=== PATIENT | male | born 1960 | race Caucasian/White ===

== ENCOUNTER 2017-03-27 06:13 | Inpatient (IN) | payer MEDICAID ==
[~2017-03-27] VITALS: Ht 167.6 cm; Wt 69.9 kg
[2017-03-27] VITALS (9 sets, daily range): BP systolic 68–114; BP diastolic 41–65
[2017-03-27 07:04] LABS: BASOPHIL % 0.4 % (0-2); PLATELET COUNT 132 x10^3mcL (130-400)
[2017-03-27 07:05] LABS: RED CELL DISTRIBUTION WIDTH 18.4 % (11.5-14.5)
[2017-03-27] MEDS ORDERED: INSULIN (07:13)
[2017-03-27 07:17] LABS: CARBON DIOXIDE 15.4 mmol/L (21-32); CREATININE SERUM 1.5 mg/dL (0.7-1.3); POTASSIUM SERUM 4.6 mmol/L (3.5-5.1)
[2017-03-27 07:28] LABS: ALBUMIN 2.5 g/dL (3.4-5.0); BILIRUBIN TOTAL 0.51 mg/dL (0.20-1.00); C REACTIVE PROTEIN 8.3 mg/dL (<=0.9); TOTAL PROTEIN, SERUM 6.8 g/dL (6.4-8.2)
[2017-03-27 07:31] LABS: FREE T4 0.91 ng/dL (0.76-1.46); T4(THYROXINE) 5.9 ug/dL (4.7-13.3)
[2017-03-27 07:43] LABS: CK-MB 1.5 ng/mL (0-3.6)
[2017-03-27 08:28] LABS: ERYTHROCYTE SED RATE 51 mm/hr (0-20)
[2017-03-27 08:49] LABS: T3 TOTAL 0.61 ng/mL
[2017-03-27 10:13] LABS: PHOSPHOROUS 4.5 mg/dL (2.5-4.9)
[2017-03-27 10:14] LABS: MAGNESIUM 1.8 mg/dL (1.8-2.4)
[2017-03-27 10:15] LABS: CHOLESTEROL/HDL RATIO 1.3
[2017-03-27 18:30] LABS: CALCIUM 6.8 mg/dL (8.5-10.1); CARBON DIOXIDE 12.2 mmol/L (21-32); CREATININE SERUM 1.7 mg/dL (0.7-1.3); POTASSIUM SERUM 4.4 mmol/L (3.5-5.1)
[2017-03-27 18:34] LABS: UA SPECIFIC GRAVITY 1.025 (1.005-1.035); microscopic required? YES; urine erythrocyte 2+ (NEGATIVE)
[2017-03-27 19:50] LABS: AMPHETAMINE QUAL UR NONE DETECTED (NEG <=1000)
[2017-03-28] VITALS (19 sets, daily range): BP systolic 75–114; BP diastolic 49–66
[2017-03-28 05:16] LABS: CALCIUM 7.1 mg/dL (8.5-10.1); CREATININE SERUM 2.2 mg/dL (0.7-1.3); MAGNESIUM 1.3 mg/dL (1.8-2.4); POTASSIUM SERUM 4.4 mmol/L (3.5-5.1)
[2017-03-28 05:21] LABS: RED BLOOD CELLS 2.67 M/mm3 (4.52-5.90)
[2017-03-28 05:34] LABS: PLATELET COUNT 116 x10^3mcL (130-400); RED CELL DISTRIBUTION WIDTH 18.3 % (11.5-14.5)
[2017-03-28 05:53] LABS: BAND NEUTROPHIL 20 % (0-10); METAMYELOCTE 8 % (0-2); MONOCYTE 4 % (0-7); SEGMENTED NEUTROPHILS 66 % (37-75)
[2017-03-28 05:55] LABS: rbc morphology (normal/abnorm) ABNORMAL (NORMAL)
[2017-03-28 05:56] LABS: ovalocyte/elliptocyte 1+; tear drop cell (dacryocyte) 1+
[2017-03-28 07:35] LABS: IRON 13 ug/dL (65-170); TOTAL IRON BINDING CAPACITY 199 ug/dL (250-450)
[2017-03-29] VITALS (19 sets, daily range): BP systolic 72–123; BP diastolic 47–83
[2017-03-29 05:11] LABS: CARBON DIOXIDE 13.9 mmol/L (21-32); CREATININE SERUM 2.9 mg/dL (0.7-1.3); MAGNESIUM 2.3 mg/dL (1.8-2.4); PHOSPHOROUS 5.7 mg/dL (2.5-4.9); POTASSIUM SERUM 4.8 mmol/L (3.5-5.1)
[2017-03-29 05:14] LABS: PLATELET COUNT 87 x10^3mcL (130-400); RED CELL DISTRIBUTION WIDTH 19.1 % (11.5-14.5)
[2017-03-29 05:38] LABS: BAND NEUTROPHIL 28 % (0-10); METAMYELOCTE 15 % (0-2); MONOCYTE 1 % (0-7); MYELOCYTE 1 % (0-2); SEGMENTED NEUTROPHILS 54 % (37-75)
[2017-03-29 05:40] LABS: ovalocyte/elliptocyte 1+; rbc morphology (normal/abnorm) ABNORMAL (NORMAL); tear drop cell (dacryocyte) 1+
[2017-03-29 05:42] LABS: PLATELET MORPHOLOGY LARGE PLATELET SEEN
[2017-03-30] VITALS (18 sets, daily range): BP systolic 83–133; BP diastolic 54–83
[2017-03-30 06:02] LABS: PLATELET COUNT 47 x10^3mcL (130-400)
[2017-03-30 06:05] LABS: CALCIUM 7.2 mg/dL (8.5-10.1); CARBON DIOXIDE 18.4 mmol/L (21-32); CREATININE SERUM 3.5 mg/dL (0.7-1.3); MAGNESIUM 2.3 mg/dL (1.8-2.4); PHOSPHOROUS 6.5 mg/dL (2.5-4.9); POTASSIUM SERUM 3.7 mmol/L (3.5-5.1)
[2017-03-30 06:16] LABS: BAND NEUTROPHIL 25 % (0-10); METAMYELOCTE 12 % (0-2); MONOCYTE 3 % (0-7); MYELOCYTE 2 % (0-2); SEGMENTED NEUTROPHILS 56 % (37-75); ovalocyte/elliptocyte 1+; rbc morphology (normal/abnorm) ABNORMAL (NORMAL); tear drop cell (dacryocyte) 1+
[2017-03-31] VITALS (17 sets, daily range): BP systolic 97–155; BP diastolic 65–96
[2017-03-31 06:10] LABS: BASOPHIL % 0 % (0-2)
[2017-03-31 06:12] LABS: PLATELET COUNT 44 x10^3mcL (130-400)
[2017-03-31 06:14] LABS: CALCIUM 6.9 mg/dL (8.5-10.1); CARBON DIOXIDE 31.4 mmol/L (21-32); CREATININE SERUM 2.4 mg/dL (0.7-1.3); PHOSPHOROUS 4.6 mg/dL (2.5-4.9); POTASSIUM SERUM 3.2 mmol/L (3.5-5.1)
[2017-04-01] VITALS (18 sets, daily range): BP systolic 95–159; BP diastolic 42–99
[2017-04-01 05:25] LABS: BASOPHIL % 0 % (0-2); PLATELET COUNT 38 x10^3mcL (130-400); RED CELL DISTRIBUTION WIDTH 20.6 % (11.5-14.5)
[2017-04-01 05:33] LABS: CALCIUM 7.4 mg/dL (8.5-10.1); CARBON DIOXIDE 28.1 mmol/L (21-32); CREATININE SERUM 2.3 mg/dL (0.7-1.3); MAGNESIUM 2.1 mg/dL (1.8-2.4); PHOSPHOROUS 3.1 mg/dL (2.5-4.9); POTASSIUM SERUM 3.2 mmol/L (3.5-5.1)
[2017-04-02] VITALS (17 sets, daily range): BP systolic 121–162; BP diastolic 75–96
[2017-04-02 05:03] LABS: PLATELET COUNT 40 x10^3mcL (130-400); RED CELL DISTRIBUTION WIDTH 20.1 % (11.5-14.5)
[2017-04-02 05:09] LABS: CALCIUM 7.4 mg/dL (8.5-10.1); CARBON DIOXIDE 25.3 mmol/L (21-32); MAGNESIUM 2.2 mg/dL (1.8-2.4); PHOSPHOROUS 3.5 mg/dL (2.5-4.9); POTASSIUM SERUM 3.4 mmol/L (3.5-5.1)
[2017-04-02 05:51] LABS: BAND NEUTROPHIL 6 % (0-10); METAMYELOCTE 2 % (0-2); MONOCYTE 3 % (0-7); SEGMENTED NEUTROPHILS 85 % (37-75); rbc morphology (normal/abnorm) ABNORMAL (NORMAL)
[2017-04-02 05:52] LABS: ovalocyte/elliptocyte 1+
[2017-04-03] VITALS (15 sets, daily range): BP systolic 98–153; BP diastolic 65–94
[2017-04-03 04:50] LABS: BASOPHIL % 1.5 % (0-2)
[2017-04-03 04:55] LABS: RED CELL DISTRIBUTION WIDTH 19.6 % (11.5-14.5)
[2017-04-03 04:56] LABS: PLATELET COUNT 36 x10^3mcL (130-400)
[2017-04-03 05:05] LABS: CALCIUM 7.7 mg/dL (8.5-10.1); CARBON DIOXIDE 28.9 mmol/L (21-32); CREATININE SERUM 2.5 mg/dL (0.7-1.3); PHOSPHOROUS 3.9 mg/dL (2.5-4.9); POTASSIUM SERUM 4.2 mmol/L (3.5-5.1)
[2017-04-04] VITALS (20 sets, daily range): BP systolic 92–165; BP diastolic 59–107
[2017-04-04 08:53] LABS: CALCIUM 7.5 mg/dL (8.5-10.1); CARBON DIOXIDE 28.6 mmol/L (21-32); CREATININE SERUM 3.4 mg/dL (0.7-1.3)
[2017-04-04 11:41] LABS: BASOPHIL % 0 % (0-2); BILIRUBIN TOTAL 0.7 mg/dL (0.20-1.00); CALCIUM 7.8 mg/dL (8.5-10.1); CARBON DIOXIDE 25.8 mmol/L (21-32); CREATININE SERUM 3.5 mg/dL (0.7-1.3); RED CELL DISTRIBUTION WIDTH 20.3 % (11.5-14.5)
[2017-04-04 11:46] LABS: ALBUMIN 1.4 g/dL (3.4-5.0)
[2017-04-04 12:06] LABS: PLATELET COUNT 32 x10^3mcL (130-400)
[2017-04-05] VITALS (14 sets, daily range): BP systolic 110–142; BP diastolic 66–83
[2017-04-05 05:33] LABS: BASOPHIL % 0 % (0-2); RED CELL DISTRIBUTION WIDTH 20.2 % (11.5-14.5)
[2017-04-05 05:34] LABS: PLATELET COUNT 41 x10^3mcL (130-400)
[2017-04-05 05:36] LABS: CALCIUM 7.6 mg/dL (8.5-10.1); CARBON DIOXIDE 28.4 mmol/L (21-32); CREATININE SERUM 2.6 mg/dL (0.7-1.3); PHOSPHOROUS 4.5 mg/dL (2.5-4.9); POTASSIUM SERUM 4.2 mmol/L (3.5-5.1)
[2017-04-06] VITALS (7 sets, daily range): BP systolic 114–143; BP diastolic 65–75
[2017-04-06 05:42] LABS: BASOPHIL % 0 % (0-2); PLATELET COUNT 52 x10^3mcL (130-400); RED CELL DISTRIBUTION WIDTH 19.9 % (11.5-14.5)
[2017-04-06 05:47] LABS: CALCIUM 7.9 mg/dL (8.5-10.1); CARBON DIOXIDE 26.4 mmol/L (21-32); CREATININE SERUM 3.3 mg/dL (0.7-1.3); MAGNESIUM 1.9 mg/dL (1.8-2.4); PHOSPHOROUS 4.5 mg/dL (2.5-4.9); POTASSIUM SERUM 3.8 mmol/L (3.5-5.1)
[2017-04-07 05:23] VITALS: BP 128/60
[2017-04-07 06:28] LABS: CALCIUM 7.6 mg/dL (8.5-10.1); CARBON DIOXIDE 28.7 mmol/L (21-32); CREATININE SERUM 2.6 mg/dL (0.7-1.3); PHOSPHOROUS 4.7 mg/dL (2.5-4.9); POTASSIUM SERUM 3.3 mmol/L (3.5-5.1)
[2017-04-07 06:43] LABS: BASOPHIL % 0 % (0-2); PLATELET COUNT 70 x10^3mcL (130-400); RED CELL DISTRIBUTION WIDTH 19.6 % (11.5-14.5)
[2017-04-07 08:15] VITALS: BP 140/93
[2017-04-07 10:22] VITALS: BP 140/93
[2017-04-07 12:20] VITALS: BP 108/62
[2017-04-07 15:09] VITALS: BP 134/69
[2017-04-07 17:32] VITALS: BP 125/73
[2017-04-08 05:43] VITALS: BP 118/54
[2017-04-08 07:01] LABS: CALCIUM 7.5 mg/dL (8.5-10.1); CARBON DIOXIDE 26.5 mmol/L (21-32); CREATININE SERUM 3.4 mg/dL (0.7-1.3); MAGNESIUM 1.6 mg/dL (1.8-2.4); PHOSPHOROUS 4.8 mg/dL (2.5-4.9); POTASSIUM SERUM 4.4 mmol/L (3.5-5.1)
[2017-04-08 07:45] LABS: BASOPHIL % 0 % (0-2); PLATELET COUNT 78 x10^3mcL (130-400); RED CELL DISTRIBUTION WIDTH 19.9 % (11.5-14.5)
[2017-04-08 09:24] VITALS: BP 146/74
[2017-04-08 13:46] VITALS: BP 128/72
[2017-04-08 21:50] VITALS: BP 131/65
[2017-04-09 05:48] VITALS: BP 119/62
[2017-04-09 06:48] LABS: CALCIUM 7.6 mg/dL (8.5-10.1); CARBON DIOXIDE 27.3 mmol/L (21-32); CREATININE SERUM 2.5 mg/dL (0.7-1.3); PHOSPHOROUS 4.5 mg/dL (2.5-4.9); POTASSIUM SERUM 3.9 mmol/L (3.5-5.1)
[2017-04-09 07:42] LABS: BASOPHIL % 0 % (0-2); PLATELET COUNT 81 x10^3mcL (130-400); RED CELL DISTRIBUTION WIDTH 20.4 % (11.5-14.5)
[2017-04-09 09:25] VITALS: BP 123/69
[2017-04-09 15:15] VITALS: BP 115/67
[2017-04-09 18:45] VITALS: BP 129/72
[2017-04-09 21:24] VITALS: BP 121/66
[2017-04-10 06:07] VITALS: BP 119/62
[2017-04-10 06:15] LABS: CALCIUM 7.5 mg/dL (8.5-10.1); CARBON DIOXIDE 25.9 mmol/L (21-32); CREATININE SERUM 3.2 mg/dL (0.7-1.3); PHOSPHOROUS 5.4 mg/dL (2.5-4.9)
[2017-04-10 07:01] LABS: BASOPHIL % 0 % (0-2); PLATELET COUNT 87 x10^3mcL (130-400); RED CELL DISTRIBUTION WIDTH 19.7 % (11.5-14.5)
[2017-04-10 09:35] VITALS: BP 101/46
[2017-04-10 12:59] VITALS: BP 110/58
[2017-04-10 17:04] VITALS: BP 123/62
[2017-04-10 21:58] VITALS: BP 150/76
[2017-04-11 04:24] VITALS: Ht 167.6 cm; Wt 69.9 kg
[2017-04-11 06:09] VITALS: BP 143/75
[2017-04-11 07:09] LABS: CALCIUM 7.4 mg/dL (8.5-10.1); CARBON DIOXIDE 29.8 mmol/L (21-32); CREATININE SERUM 2.3 mg/dL (0.7-1.3); PHOSPHOROUS 4.2 mg/dL (2.5-4.9)
[2017-04-11 08:14] LABS: PLATELET COUNT 91 x10^3mcL (130-400); RED CELL DISTRIBUTION WIDTH 20.1 % (11.5-14.5)
[2017-04-11 08:46] VITALS: BP 129/69
[2017-04-11 09:54] LABS: ATYPICAL LYMPH 1 %; BAND NEUTROPHIL 4 % (0-10); METAMYELOCTE 3 % (0-2); MONOCYTE 8 % (0-7); SEGMENTED NEUTROPHILS 79 % (37-75)
[2017-04-11 09:55] LABS: rbc morphology (normal/abnorm) ABNORMAL (NORMAL)
[2017-04-11 13:40] VITALS: BP 142/71
[2017-04-11 17:27] VITALS: BP 136/69
[2017-04-11 21:49] VITALS: BP 142/83
[2017-04-12 04:50] VITALS: BP 116/56
[2017-04-12 07:35] LABS: CALCIUM 7.5 mg/dL (8.5-10.1); CREATININE SERUM 3.1 mg/dL (0.7-1.3); MAGNESIUM 1.6 mg/dL (1.8-2.4); PHOSPHOROUS 5.1 mg/dL (2.5-4.9); POTASSIUM SERUM 4.4 mmol/L (3.5-5.1)
[2017-04-12 07:54] LABS: BASOPHIL % 0 % (0-2); PLATELET COUNT 87 x10^3mcL (130-400); RED CELL DISTRIBUTION WIDTH 19.8 % (11.5-14.5)
[2017-04-12 10:23] VITALS: BP 140/8
[2017-04-12 14:18] VITALS: BP 138/70
[2017-04-12 17:39] VITALS: BP 138/74
[2017-04-12 21:40] VITALS: BP 143/83
[2017-04-13 05:41] VITALS: BP 117/56
[2017-04-13 06:30] LABS: CALCIUM 7.5 mg/dL (8.5-10.1); CARBON DIOXIDE 24.9 mmol/L (21-32); CREATININE SERUM 3.8 mg/dL (0.7-1.3); MAGNESIUM 1.7 mg/dL (1.8-2.4); PHOSPHOROUS 5.9 mg/dL (2.5-4.9); POTASSIUM SERUM 4.7 mmol/L (3.5-5.1)
[2017-04-13 06:57] LABS: PLATELET COUNT 83 x10^3mcL (130-400); RED CELL DISTRIBUTION WIDTH 19.5 % (11.5-14.5)
[2017-04-13 08:52] VITALS: BP 129/76
[2017-04-13 11:30] LABS: ATYPICAL LYMPH 1 %; BAND NEUTROPHIL 3 % (0-10); BASOPHIL 0 % (0-2); MONOCYTE 8 % (0-7); SEGMENTED NEUTROPHILS 80 % (37-75)
[2017-04-13 11:31] LABS: PLATELET MORPHOLOGY PLATELETS DECREASED; rbc morphology (normal/abnorm) ABNORMAL (NORMAL)
[2017-04-13 11:32] LABS: ovalocyte/elliptocyte 1+; schistocyte (helmet cell) 1+
[2017-04-13 11:33] LABS: burr cell (echinocyte) 1+
[2017-04-13 13:57] VITALS: BP 114/63
[2017-04-13 16:59] VITALS: BP 110/65
[2017-04-13 21:33] VITALS: BP 127/69
[2017-04-13 23:49] LABS: SOURCE FLUID THORACENTESIS
[2017-04-14 05:27] VITALS: BP 113/60
[2017-04-14 07:15] LABS: CALCIUM 7.3 mg/dL (8.5-10.1); CARBON DIOXIDE 26.8 mmol/L (21-32); CREATININE SERUM 2.5 mg/dL (0.7-1.3); MAGNESIUM 1.7 mg/dL (1.8-2.4); PHOSPHOROUS 4.4 mg/dL (2.5-4.9); POTASSIUM SERUM 3.9 mmol/L (3.5-5.1)
[2017-04-14 07:27] LABS: PLATELET COUNT 72 x10^3mcL (130-400); RED CELL DISTRIBUTION WIDTH 19.4 % (11.5-14.5)
[2017-04-14 09:41] VITALS: BP 119/68
[2017-04-14 11:34] LABS: BAND NEUTROPHIL 3 % (0-10); BASOPHIL 0 % (0-2); MONOCYTE 1 % (0-7); SEGMENTED NEUTROPHILS 95 % (37-75); rbc morphology (normal/abnorm) ABNORMAL (NORMAL)
[2017-04-14 11:35] LABS: PLATELET MORPHOLOGY PLATELETS DECREASED; ovalocyte/elliptocyte 2+
[2017-04-14 13:39] VITALS: BP 112/69
[2017-04-14 16:55] VITALS: BP 121/61
[2017-04-14 20:42] VITALS: BP 124/62
[2017-04-14 22:40] VITALS: BP 98/57
[2017-04-15 05:43] VITALS: BP 112/55
[2017-04-15 06:55] LABS: CALCIUM 7.4 mg/dL (8.5-10.1); CARBON DIOXIDE 24.4 mmol/L (21-32); CREATININE SERUM 3.4 mg/dL (0.7-1.3); PHOSPHOROUS 5.5 mg/dL (2.5-4.9); POTASSIUM SERUM 4.6 mmol/L (3.5-5.1)
[2017-04-15 09:59] VITALS: BP 108/68
[2017-04-15 14:48] VITALS: BP 126/62
[2017-04-15] MEDS ORDERED: NOR5 PO (15:17)
[2017-04-15] MEDS ORDERED: FER300 PO (15:17)
[2017-04-15] MEDS ORDERED: BG FS (15:17)
[2017-04-15] MEDS ORDERED: L40 PO (15:18)
[2017-04-15] MEDS ORDERED: PHOS PO (15:18)
[2017-04-15] MEDS ORDERED: LAC PO (15:18)
[2017-04-15] MEDS ORDERED: VITC PO (15:19)
[2017-04-15] MEDS ORDERED: LEVEMIR100 U/M1 SC (15:21)
[2017-04-15] MEDS ORDERED: MEDDP PO (15:23)
[2017-04-15] MEDS ORDERED: HUMULIN R100 U/1 M1 SC (15:24)
[2017-04-15] MEDS ORDERED: 1ST CHOICE LAN1 EACH MC (16:43)
[2017-04-15 17:18] VITALS: BP 126/62
== END 2017-04-15 18:03 | disposition home or self-care (01) | DRG 130 ==
LOC: ED 06:13 → DU 08:31 → IC 08:31 → EDBD 08:31 → ED 08:31 → IC 12:01 → DU 04-06 18:38
PROVIDERS: Family Medicine; Internal Medicine; Internal Medicine Nephrology; Specialist; ADMIT Family Medicine
PROC: 5A1955Z Respiratory Ventilation, Greater than 96 Consecutive Hours (ICD-10-PCS; principal; 2017-03-27)
PROC: 0BH17EZ Insertion of Endotracheal Airway into Trachea, Via Natural or Artificial Opening (ICD-10-PCS; 2017-03-27)
PROC: 05HM33Z Insertion of Infusion Device into Right Internal Jugular Vein, Percutaneous Approach (ICD-10-PCS; 2017-03-27)
PROC: B543ZZA Ultrasonography of Right Jugular Veins, Guidance (ICD-10-PCS; 2017-03-27)
PROC: 05HN33Z Insertion of Infusion Device into Left Internal Jugular Vein, Percutaneous Approach (ICD-10-PCS; 2017-03-30)
PROC: B544ZZA Ultrasonography of Left Jugular Veins, Guidance (ICD-10-PCS; 2017-03-30)
PROC: 05HM33Z Insertion of Infusion Device into Right Internal Jugular Vein, Percutaneous Approach (ICD-10-PCS; 2017-03-30)
PROC: 02HV33Z Insertion of Infusion Device into Superior Vena Cava, Percutaneous Approach (ICD-10-PCS; 2017-04-10)
PROC: 0W9B3ZZ Drainage of Left Pleural Cavity, Percutaneous Approach (ICD-10-PCS; 2017-04-13)
DX: J96.01 Acute respiratory failure with hypoxia (principal); N17.0 Acute kidney failure with tubular necrosis; J69.0 Pneumonitis due to inhalation of food and vomit; E43 Unspecified severe protein-calorie malnutrition; J90 Pleural effusion, not elsewhere classified; N18.6 End stage renal disease; D69.59 Other secondary thrombocytopenia; N39.0 Urinary tract infection, site not specified; I95.9 Hypotension, unspecified; I27.2 Other secondary pulmonary hypertension; E86.0 Dehydration; E10.65 Type 1 diabetes mellitus with hyperglycemia; N50.89 Other specified disorders of the male genital organs; D64.9 Anemia, unspecified; E03.9 Hypothyroidism, unspecified; Z68.20 Body mass index [BMI] 20.0-20.9, adult; Z79.4 Long term (current) use of insulin
CPT/HCPCS: 32555; 36556; 36600; 80307; 82962; 83880; 84439; 86580; 87046; 87046-59; 87804; 88344; 92610-GN; 94150; 97110-GP; 97116-GP; 97530-GP; A4301; A4628; A4719; B4164; C1729; C9113; J0171; J0330; J0360; J0461; J0696; J1165; J1642; J1644; J1815; J1940; J1956; J2001; J2060; J2250; J2543; J2920; J3010; J3475; J3480; J3490; J7030; J7040; J7042; J7050; J7060; J7613; J7620; J7626; J7644; P9016; Q0092; Q0163